=== PATIENT | male | born 1970 | race African-American/Black ===

== ENCOUNTER 2017-08-07 23:37 | Emergency (ER) | payer MEDICARE, MEDICAID ==
[2017-08-08] MEDS ORDERED: Lorazepam 2 MG/ML VIAL ONE ×2 (00:45→03:53)
[2017-08-08 01:03] LABS: INR-International Normal Ratio 1.1; Prothrombin Time 14.5 SEC (12.0-14.7)
[2017-08-08 01:14] LABS: Anion Gap 12 mmol/L (10-20); BUN (Urea Nitrogen) 13 mg/dL (8.9-20.6); Calc. Creatinine Clearance 0 mL/min (70-130); Calcium 9.8 mg/dL (7.8-10.44); Carbon Dioxide 24 mmol/L (22-29); Chloride 106 mmol/L (98-107); Estimated GFR-MDRD 76; Glucose 93 mg/dL (70-105); Potassium 4.1 mmol/L (3.5-5.1); Sodium 138 mmol/L (136-145)
[2017-08-08 01:16] LABS: Eosinophils 2 % (0-10); Hemoglobin 14.9 g/dL (14.0-18.0); Lymphocytes 46 % (21-51); MDiff Complete? YES; Mean Corpuscular HGB CONC 32.1 g/dL (32.0-36.0); Mean Corpuscular Hemoglobin 29.3 pg (27.0-31.0); Mean Corpuscular Volume 91.3 fl (80.0-94.0); Mean Platelet Volume 8.7 fL (7.4-10.4); Monocytes 12 % (0-10); Neutrophil 40 % (42-75); PLT Morphology Comment Appears Adequate; Platelet Count 140 thou/uL (130-400); RBC Distribution Width 12.4 % (11.5-14.5); Red Blood Cell (RBC) Count 5.09 mill/uL (4.70-6.10); White Blood Cell (WBC) Count 2.8 thou/uL (4.8-10.8)
[2017-08-08 01:21] LABS: Troponin I 0.023 ng/mL (< 0.028)
[2017-08-08] MEDS ORDERED: Bacitracin Zinc 1 Packet ONE (02:42)
[2017-08-08] MEDS ORDERED: Adacel (T-DAP) 0.5 ML VIAL ONE (02:47)
--- NOTE | 2017-08-08 07:45 | CT ---
PRELIMINARY REPORT/[facility]/EMERGENCY AFTER HOURS PROCEDURE: EXAM: CT Cervical Spine Without Intravenous Contrast CLINICAL HISTORY: 47 years old, male; Injury or trauma; Fall; Initial encounter; Abrasion; Patient HX: M47 presents to ed S/P fall C/O head injury. Pt fell and hit back of head. +loc for possibly 4-5 minutes. Caregiver r eports pt usually runs out of the room acting really scared at night and thinks maybe he did that ton ight and tripped on covers. HX of anxiety, no cardiac HX. Not on blood thinners. TECHNIQUE: Axial computed tomography images of the cervical spine without intravenous contrast. Coronal and sagittal reformatted images were created and reviewed. COMPARISON: No relevant prior studies available. FINDINGS: Vertebrae: Normal. No acute fracture. Discs/spinal canal/neural foramina: No acute findings. No spinal canal stenosis. Soft tissues: Normal. Lung apices: Normal as visualized. IMPRESSION: Normal cervical spine CT. Thank you for allowing us to participate in the care of your patient. Dictated and Authenticated by: Mack Sampson MD 08/08/2017 2:00 AM Central Time ([place] & [place]) FINAL REPORT CERVICAL SPINE CT WITHOUT IV CONTRAST: Emergency after-hours examination at 1:16 a.m. on 08/08/2017 Multilevel cervical disk osteophytosis. No fracture or dislocation. Code QA/Agree [facility] POS: [facility]
--- NOTE | 2017-08-08 07:51 | CT ---
PRELIMINARY REPORT/[facility]/EMERGENCY AFTER HOURS PROCEDURE: EXAM: CT Angiography Chest With Intravenous Contrast EXAM DATE/TIME: Exam ordered 08/08/2017 4:41 AM CLINICAL HISTORY: 47 years old, male; Signs and symptoms; Tachypnea and other: Syncope; Patient HX: Questionable syncop e, pt tachycardic. M47 presents to ed S/P fall C/O head injury. Pt fell and hit back of head. +loc fo r possibly 4-5 minutes. Caregiver reports pt usually runs out of the room acting really scared at [facility] and thinks maybe he did that tonight and tripped on covers. HX of anxiety, no cardiac HX. Not on b lood thinners. ; Additional info: *iv injection done twice due to iv leak during first attempt* a m aximum of 110 of iv contrast TECHNIQUE: Axial computed tomographic angiography images of the chest with intravenous contrast using pulmonary embolism protocol. CONTRAST: 100 mL of iso 370 administered intravenously. COMPARISON: No relevant prior studies available. FINDINGS: Pulmonary arteries: There is no evidence of peripheral filling defects within the pulmonary arterial circulation to suggest pulmonary embolism. Aorta: No acute findings. No thoracic aortic aneurysm. Lungs: There is subpleural atelectasis of the dependent portions of the lungs. No mass. Pleural space: Normal. No significant effusion. No pneumothorax. Heart: Normal. No cardiomegaly. No significant pericardial effusion. No evidence of RV dysfunction. Bones/joints: No acute fracture. No dislocation. Soft tissues: Normal. Lymph nodes: Normal. No enlarged lymph nodes. IMPRESSION: There is no CT evidence of acute pulmonary embolism. Thank you for allowing us to participate in the care of your patient. Dictated and Authenticated by: Enrique Kerr MD 08/08/2017 5:22 AM Central Time ([place] & [place]) FINAL REPORT CT PULMONARY ANGIOGRAM WITH IV CONTRAST AND 3D POST PROCESSING: I agree with the preliminary report given by Dr. Enrique Kerr of [facility]. POS: [facility]
--- NOTE | 2017-08-08 07:53 | CT ---
PRELIMINARY REPORT/[facility]/EMERGENCY AFTER HOURS PROCEDURE: EXAM: CT Head Without Intravenous Contrast CLINICAL HISTORY: 47 years old, male; Injury or trauma; Fall; Initial encounter; Abrasion; Not specified; Patient HX: M 47 presents to ed S/P fall C/O head injury. Pt fell and hit back of head. +loc for possibly 4-5 minut es. Caregiver reports pt usually runs out of the room acting really scared at night and thinks maybe he did that tonight and tripped on covers. HX of anxiety, no cardiac HX. Not on blood thinners. TECHNIQUE: Axial computed tomography images of the head/brain without intravenous contrast. COMPARISON: No relevant prior studies available. FINDINGS: Brain: Normal. Ventricles: Incidental note of cavum septum pellucidum and cavum septum vergae. Bones/joints: Normal. No acute fracture. Soft tissues: Mild right posterior parietal soft tissue swelling/contusion. Sinuses: Mild ethmoid sinus disease. Mastoid air cells: Normal as visualized. No mastoid effusion. IMPRESSION: 1. No acute intracranial abnormality. 2. Mild right posterior parietal soft tissue swelling/contusion. 3. Incidental/non-acute findings are described above. Thank you for allowing us to participate in the care of your patient. Dictated and Authenticated by: Mack Sampson MD 08/08/2017 1:55 AM Central Time ([place] & [place]) FINAL REPORT BRAIN CT WITHOUT IV CONTRAST: Emergency after-hours examination at 1:14 a.m. on 08/08/2017. Right posterior parietal scalp soft tissue swelling. No acute intracranial process. No mass or blee d. Code QA/Agree with [facility]. POS: [facility]
--- NOTE | 2017-08-08 08:21 | RAD ---
PORTABLE CHEST ONE VIEW: 08/08/2017 12:38 a.m. HISTORY: Trauma. Fall. Hit back of head. No loss of consciousness. FINDINGS: The heart size is normal. No confluent areas of consolidation, pneumothorax, tata pulmonary edema, or large effusions are seen. POS: [facility]
[2017-08-08] MEDS ORDERED: ISOVUE-370 76%-LOCM 1 ML ONE (16:53)
--- NOTE | 2017-08-09 13:28 | EKG ---
Test Reason : FALL Blood Pressure : / mmHG Vent. Rate : 101 BPM Atrial Rate : 101 BPM P-R Int : 136 ms QRS Dur : 080 ms QT Int : 346 ms P-R-T Axes : 052 047 027 degrees QTc Int : 448 ms Sinus tachycardia Otherwise normal ECG Confirmed by CHERYL ANDINO ([id number]), graphic editor CASTILLO BELLAMY ([id number]) on 08/09/2017 1:27:38 PM Referred By: JOANN Confirmed By:CHERYL ANDINO
== END 2017-08-08 06:02 | disposition home or self-care (01) ==
LOC: ERS 23:37
DX: S01.01XA Laceration without foreign body of scalp, initial encounter (principal); E03.9 Hypothyroidism, unspecified; F41.9 Anxiety disorder, unspecified; F31.9 Bipolar disorder, unspecified; F20.9 Schizophrenia, unspecified; F90.9 Attention-deficit hyperactivity disorder, unspecified type; W01.10XA Fall on same level from slipping, tripping and stumbling with subsequent striking against unspecified object, initial encounter; Z79.899 Other long term (current) drug therapy
CPT/HCPCS: 12001; 36415; 70450; 71010; 71275; 72125; 80048; 82553; 84484; 85025; 85610; 85730; 90471; 90715; 93005; 96372; J2060

== ENCOUNTER 2020-06-26 11:48 | Emergency (ER) | payer MEDICARE, MEDICAID ==
[2020-06-26 22:33] LABS: SARS-CoV-2 MS2 Positive; SARS-CoV-2 N Gene Negative; SARS-CoV-2 S Gene Negative; SARS-CoV-2 by NAA Not Detected (NotDetected); SARS-CoV-2 orf1ab Negative
== END 2020-06-26 12:13 | disposition home or self-care (01) ==
LOC: ERS 11:48
DX: Z20.828 Contact with and (suspected) exposure to other viral communicable diseases (principal); E03.9 Hypothyroidism, unspecified; F31.9 Bipolar disorder, unspecified; F41.9 Anxiety disorder, unspecified; F20.9 Schizophrenia, unspecified; F90.9 Attention-deficit hyperactivity disorder, unspecified type
CPT/HCPCS: 99283; U0003; 87635

== ENCOUNTER 2020-07-25 10:24 | Emergency (ER) | payer MEDICARE, MEDICAID ==
[2020-07-25 20:02] LABS: SARS-CoV-2 MS2 Positive; SARS-CoV-2 N Gene Negative; SARS-CoV-2 S Gene Negative; SARS-CoV-2 by NAA Not Detected (NotDetected); SARS-CoV-2 orf1ab Negative
== END 2020-07-25 11:11 | disposition home or self-care (01) ==
LOC: ERS 10:24
DX: Z20.828 Contact with and (suspected) exposure to other viral communicable diseases (principal); E03.9 Hypothyroidism, unspecified
CPT/HCPCS: 87635; 99283; U0003

== ENCOUNTER 2020-08-22 10:26 | Emergency (ER) | payer MEDICARE, MEDICAID ==
[2020-08-22 16:46] LABS: SARS-CoV-2 MS2 Positive; SARS-CoV-2 N Gene Negative; SARS-CoV-2 S Gene Negative; SARS-CoV-2 by NAA Not Detected (NotDetected); SARS-CoV-2 orf1ab Negative
== END 2020-08-22 11:53 | disposition home or self-care (01) ==
LOC: ERS 10:26
DX: Z20.822 Contact with and (suspected) exposure to COVID-19 (principal); I34.0 Nonrheumatic mitral (valve) insufficiency; E03.9 Hypothyroidism, unspecified
CPT/HCPCS: 87635; 99283; U0003

== ENCOUNTER 2021-06-21 09:10 | Emergency (ER) | payer MEDICARE, MEDICAID ==
[2021-06-21 10:01] LABS: Mean Corpuscular HGB CONC 32.5 g/dL (32.0-36.0); Mean Corpuscular Hemoglobin 29.1 pg (27.0-31.0); Mean Corpuscular Volume 89.6 fL (78.0-98.0); Mean Platelet Volume 8.4 fL (7.4-10.4); Platelet Count 132 thou/uL (130-400); RBC Distribution Width 14.2 % (11.5-14.5); Red Blood Cell (RBC) Count 4.13 mill/uL (4.70-6.10); White Blood Cell (WBC) Count 3.8 thou/uL (4.8-10.8)
[2021-06-21 10:27] LABS: ALT (SGPT) 55 U/L (8-55); AST (SGOT) 32 U/L (5-34); Albumin 3.6 g/dL (3.5-5.0); Alkaline Phosphatase 147 U/L (40-110); Anion Gap 11 mmol/L (10-20); BUN (Urea Nitrogen) 16 mg/dL (8.4-25.7); Bilirubin, Total 0.2 mg/dL (0.2-1.2); CK (CPK) 79 U/L (30-200); Calc. Creatinine Clearance 0 mL/min (70-130); Calcium 9.1 mg/dL (7.8-10.44); Carbon Dioxide 26 mmol/L (22-29); Chloride 111 mmol/L (98-107); Globulin 4.7 g/dL (2.4-3.5); Glucose 109 mg/dL (70-105); Lipase 28 U/L (8-78); Potassium 4.5 mmol/L (3.5-5.1); Protein, Total 8.3 g/dL (6.0-8.3); Sodium 143 mmol/L (136-145)
[2021-06-21 10:42] LABS: Band 3 % (5-11); Eosinophils 1 % (0-10); Lymphocytes 29 % (21-51); MDiff Complete? YES; Monocytes 16 % (0-10); Neutrophil 51 % (42-75); Nucleated RBC 1 % (0); Platelet Morphology Comment Appears Adequate; RBC Morphology Normal
== END 2021-06-21 10:50 | disposition home or self-care (01) ==
LOC: ERS 09:10
DX: E86.0 Dehydration (principal); R19.7 Diarrhea, unspecified; E03.9 Hypothyroidism, unspecified
CPT/HCPCS: 80053; 82550; 83690; 84484; 85025; 93005

== ENCOUNTER 2021-12-05 13:26 | Emergency (ER) | payer MEDICARE, MEDICAID ==
[2021-12-05] MEDS ORDERED: Lorazepam 2 MG/ML VIAL ONE (13:53)
[2021-12-05] MEDS ORDERED: Haloperidol Lactate 5 MG/ML VIAL ONE (14:43)
== END 2021-12-05 15:22 | disposition home or self-care (01) ==
LOC: ERS 13:26
DX: S00.01XA Abrasion of scalp, initial encounter (principal); S00.83XA Contusion of other part of head, initial encounter; E03.9 Hypothyroidism, unspecified; Z20.822 Contact with and (suspected) exposure to COVID-19; W18.30XA Fall on same level, unspecified, initial encounter; W22.8XXA Striking against or struck by other objects, initial encounter
CPT/HCPCS: 96372; 99283; J1630; J2060

== ENCOUNTER 2022-01-07 12:28 | Emergency (ER) | payer MEDICARE, MEDICAID ==
[2022-01-07] MEDS ORDERED: Lorazepam 2 MG/ML VIAL ONE (16:01)
[2022-01-07] MEDS ORDERED: Ziprasidone 20 MG VIAL ONE ×2 (16:39→16:43)
[2022-01-07] MEDS ORDERED: Ketamine 50 MG/ML (10ML VIAL) ONE (18:07)
== END 2022-01-07 20:36 | disposition home or self-care (01) ==
LOC: ERS 12:28
DX: S09.90XA Unspecified injury of head, initial encounter (principal); E03.9 Hypothyroidism, unspecified; W07.XXXA Fall from chair, initial encounter
CPT/HCPCS: 70450; 72125; 96372; 96374; 99152; J2060; J3486

== ENCOUNTER 2022-04-08 08:31 | Emergency (ER) | payer MEDICARE, MEDICAID ==
[2022-04-08 09:32] LABS: ALT (SGPT) 49 U/L (8-55); AST (SGOT) 32 U/L (5-34); Albumin 3.5 g/dL (3.5-5.0); Alkaline Phosphatase 132 U/L (40-110); Anion Gap 15 mmol/L (10-20); BUN (Urea Nitrogen) 14 mg/dL (8.4-25.7); Bilirubin, Total 0.3 mg/dL (0.2-1.2); CK (CPK) 49 U/L (30-200); Calc. Creatinine Clearance 0 mL/min (70-130); Calcium 8.7 mg/dL (7.8-10.44); Carbon Dioxide 21 mmol/L (22-29); Chloride 105 mmol/L (98-107); Estimated GFR 61; Globulin 4.2 g/dL (2.4-3.5); Glucose 147 mg/dL (70-105); Lipase 32 U/L (8-78); Potassium 4.1 mmol/L (3.5-5.1); Protein, Total 7.7 g/dL (6.0-8.3); Sodium 137 mmol/L (136-145)
[2022-04-08 09:34] LABS: Acetaminophen Less than 10.0 mcg/mL (10.0-30.0); Alcohol Less than 10 mg/dL (Less than 10); Salicylate Less than 8.0 mg/dL (15.0-30.0)
[2022-04-08 10:15] LABS: Band 4 % (5-11); Hemoglobin 10.9 g/dL (14.0-18.0); Lymphocytes 13 % (21-51); MDiff Complete? YES; Mean Corpuscular HGB CONC 32.6 g/dL (32.0-36.0); Mean Corpuscular Hemoglobin 28.9 pg (27.0-31.0); Mean Corpuscular Volume 88.6 fL (78.0-98.0); Mean Platelet Volume 10.1 fL (7.4-10.4); Monocytes 7 % (0-10); Neutrophil 74 % (42-75); Platelet Count 110 thou/uL (130-400); Platelet Morphology Comment Appears Decreased; Polychromasia SLIGHT = 2-3 cells (100X) (0-2/hpf); RBC Distribution Width 14.4 % (11.5-14.5); Reactive Lymphocytes 2 % (0-10); Red Blood Cell (RBC) Count 3.79 mill/uL (4.70-6.10)
== END 2022-04-08 11:05 | disposition home or self-care (01) ==
LOC: ERS 08:31
DX: E86.0 Dehydration (principal); E03.9 Hypothyroidism, unspecified
CPT/HCPCS: 36415; 71045; 80053; 80307; 82140; 82550; 83690; 83880; 84443; 84484; 85025; 93005; 96360

== ENCOUNTER 2022-04-28 10:50 | Emergency (ER) | payer OTHER, MEDICARE, MEDICAID | END 2022-04-28 11:56 | disposition home or self-care (01) | LOC: ERS 10:50 | DX: M79.10 Myalgia, unspecified site (principal); E03.9 Hypothyroidism, unspecified; Z79.899 Other long term (current) drug therapy; V49.10XA Passenger injured in collision with unspecified motor vehicles in nontraffic accident, initial encounter; Y92.410 Unspecified street and highway as the place of occurrence of the external cause | CPT/HCPCS: 99284 ==

== ENCOUNTER 2022-09-26 17:07 | Emergency (ER) | payer OTHER, MEDICARE, MEDICAID | END 2022-09-26 18:06 | disposition home or self-care (01) | LOC: ERS 17:07 | DX: Z04.1 Encounter for examination and observation following transport accident (principal); E03.9 Hypothyroidism, unspecified; Z79.899 Other long term (current) drug therapy | CPT/HCPCS: 99283 ==

== ENCOUNTER 2023-04-18 16:52 | Emergency (ER) | payer MEDICARE, MEDICAID | END 2023-04-18 18:09 | disposition home or self-care (01) | LOC: ERS 16:52 | DX: Z04.3 Encounter for examination and observation following other accident (principal) | CPT/HCPCS: 99284 ==

== ENCOUNTER 2024-06-27 14:01 | Emergency (ER) | payer MEDICARE, MEDICAID ==
[2024-06-27] MEDS ORDERED: KETAMINE 100 MG/ML (5ML VIAL) ONE (14:41)
== END 2024-06-27 15:46 | disposition home or self-care (01) ==
LOC: ERS 14:01
DX: S32.029A Unspecified fracture of second lumbar vertebra, initial encounter for closed fracture (principal); Z55.6 Problems related to health literacy; Z75.3 Unavailability and inaccessibility of health-care facilities; W19.XXXA Unspecified fall, initial encounter
CPT/HCPCS: 70450; 71045; 72125; 72128; 72131; 96372

== ENCOUNTER 2024-07-26 19:14 | Emergency (ER) | payer MEDICARE, MEDICAID ==
[2024-07-26] MEDS ORDERED: Ketorolac Tromethamine 30 MG (1 mL) VIAL ONE (20:06)
== END 2024-07-26 21:15 | disposition home or self-care (01) ==
LOC: ERS 19:14
DX: M54.50 Low back pain, unspecified (principal)
CPT/HCPCS: 72100; J1885; 96372; 99283